=== PATIENT | male | born 1980 ===

== ENCOUNTER → 2018-03-24 | Outpatient (CLI) | payer OTHER ==
[~2018-03-24] MED LIST: ACET325T26 PO; CLON0.2T PO; HYDR10TA4 PO; HYDR25TA11 PO; LORA1TAB PO; LOSA25TA5 PO; LOVA10TA PO; METF500T4 PO; OMNIPAQUE 350 MG/ML, 150 ML BOTTLE ONE; SERT100T5 PO; ZIPR80CA3 PO
== END | disposition home or self-care (01) ==
LOC: CFH 11:15
PROVIDERS: ATTEND Physician Assistant
DX: K76.0 Fatty (change of) liver, not elsewhere classified (principal); R31.21 Asymptomatic microscopic hematuria
CPT/HCPCS: 74178; 82565; Q9967

== ENCOUNTER 2018-11-26 12:23 | Emergency (ER) | payer MEDICARE, OTHER ==
[~2018-11-26] VITALS: Ht 177.8 cm; Wt 142.8 kg
[~2018-11-26 12:23] MED LIST changes: +LOSA25TA25 PO; -LOSA25TA5 PO; +METF500T17 PO; -METF500T4 PO; -OMNIPAQUE 350 MG/ML, 150 ML BOTTLE ONE; +SERT100T32 PO; -SERT100T5 PO
[2018-11-26 12:44] VITALS: BP 147/97
[2018-11-26] MEDS ORDERED: ZIPRASIDONE 20 MG INJ IM ONE (13:00)
--- NOTE | 2018-11-26 13:14 | NUR ---
SW CONTACTED AND IS TO BE HERE FERNIE
--- NOTE | 2018-11-26 13:16 | NUR ---
TO HOLD GEODON PER ERP
== END 2018-11-26 15:04 | disposition home or self-care (01) ==
LOC: ED 14:50
DX: F31.9 Bipolar disorder, unspecified (principal); Z76.0 Encounter for issue of repeat prescription; F41.1 Generalized anxiety disorder; E78.5 Hyperlipidemia, unspecified; E11.9 Type 2 diabetes mellitus without complications; Z90.49 Acquired absence of other specified parts of digestive tract; I10 Essential (primary) hypertension
CPT/HCPCS: 99283